=== PATIENT | male | born 1955 | race Caucasian/White ===

== ENCOUNTER 2017-11-25 00:19 | Emergency (ER) | payer MEDICARE, OTHER ==
[~2017-11-25] VITALS: Ht 180.3 cm; Wt 95.0 kg
[~2017-11-25 00:19] MED LIST: BACT800T5 PO
[2017-11-25 00:23] VITALS: BP 129/63; PULSE 83; RESP 18; TEMP 97.3; O2SAT 94
[2017-11-25] MEDS ORDERED: MORPHINE SULFATE 4 MG/ML INJ IV PUSH ONE (00:30)
[2017-11-25] MEDS ORDERED: SODIUM CHLORIDE 0.9% FLUSH 10 ML FLUSH IV FLUSH PRN (00:30)
--- NOTE | 2017-11-25 00:32 | PD ---
HPI Chief Complaint: Fall Time Seen by Provider: 00:25 Travel History International Travel<30 days: No Contact w/Intl Traveler<30days: No Traveled to known affect area: No History of Present Illness HPI 62-year-old male brought in by ambulance from his [facility] for evaluation of back pain after mechanical fall. Patient states that he was walking to the bathroom when he slipped and fell. He landed onto his right knee and right shoulder. He is unsure if he struck his head. He is not on any blood thinners. He now complains of right knee pain and right shoulder pain which is moderate, constant, worse with movements. He also complains of severe mid and lower back pain which is constant and worse with movements. No chest pain or dyspnea. No pain in any other joint or extremity. He has chronic back pain and receives cortisone injections for this. PFSH Past Medical History Anxiety: Yes Depression: Yes Cardiovascular Problems: Yes (htn, seizures) Diminished Hearing: No Hypertension: Yes Kidney Stones: Yes (STENT PLACEMENT) Pancreatitis: Yes Seizures: Yes (2005) Influenza Vaccination: Yes Past Surgical History Abdominal Surgery: Yes (HERNIA IN 1978) Eye Surgery: Yes (ORBITAL REPAIR (RIGHT) 1981) Other Surgery: Yes (HERNIA 1978) Social History Alcohol Use: No Tobacco Use: Yes (1 pack per day ) Substance Use: Yes (DRINKS BEER OR VODKA.) Allergies-Medications (Allergen,Severity, Reaction): Coded Allergies: No Known Allergies (Verified Adverse Reaction, Unknown, 11/25/17) Reported Meds & Prescriptions Reported Meds & Active Scripts Active Reported Olanzapine 5 Mg Tab 5 Mg PO DAILY Metoprolol Succinate ER 24 HR (Metoprolol Succinate) 50 Mg Tab 50 Mg PO DAILY Meloxicam 15 Mg Tab 15 Mg PO DAILY Magnesium Oxide 400 Mg Tab 400 Mg PO DAILY Alprazolam 1 Mg Tab 1 Mg PO Q6H PRN Refresh Opth Drops (Polyvinyl Alcohol-Povidone Opth Drops) 1.4-0.6% Drops 1-2 Drop EACH EYE PRN PRN Zolpidem (Zolpidem Tartrate) 10 Mg Tab 10 Mg PO HS PRN Sertraline (Sertraline HCl) 100 Mg Tab 100 Mg PO DAILY Omeprazole 40 Mg Cap 40 Mg DAILY Imodium A-D (Loperamide HCl) 2 Mg Capsule 2 Mg PO DIRECTED PRN One capsule after each loose stool. Not to exceed 8 tablets per day. Ala-Javi Topical (Hydrocortisone (Topical)) 2.5% Cream 1 Applic TOPICAL DIRECTED Elimite Topical (Permethrin) 5% Cream 1 Applic TOPICAL ONCE Hemorrhoidal Ointment (Phenyleph/Shark Jolene.oil/Mo/Pet) 57 Gm Oint...g. Itch Relief (Clotrimazole) 1 % Cream..g. Colace (Docusate Sodium) 100 Mg Capsule 100 Mg PO BID Review of Systems Except as stated in HPI: all other systems reviewed are Neg Physical Exam Narrative GENERAL: Well-developed, well-nourished, awake, alert, no apparent distress. SKIN: Focused skin assessment warm/dry. HEAD: Atraumatic. Normocephalic. EYES: Pupils equal and round. No scleral icterus. No injection or drainage. ENT: Mucous membranes pink and moist. NECK: Trachea midline. No JVD. CARDIOVASCULAR: Regular rate and rhythm. No murmur appreciated. RESPIRATORY: No accessory muscle use. Clear to auscultation. Breath sounds equal bilaterally. GASTROINTESTINAL: Abdomen soft, non-tender, nondistended. Hepatic and splenic margins not palpable. MUSCULOSKELETAL: Moderate midline thoracic spine and lumbar spine tenderness without step-off. Moderate tenderness to right knee and right shoulder without obvious deformity, with normal range of motion. The rest of his joints and extremities are without deformity, without tenderness, with normal range of motion. NEUROLOGICAL: Awake and alert. No obvious cranial nerve deficits. Motor grossly within normal limits. Normal speech. PSYCHIATRIC: Appropriate mood and affect; insight and judgment normal. Data Data Last Documented VS Vital Signs Date Time Temp Pulse Resp B/P (MAP) Pulse Ox O2 Delivery O2 Flow Rate FiO2 11/25/17 01:41 78 16 135/75 (95) 95 Room Air 11/25/17 00:23 97.3 Orders Orders Complete Blood Count With Diff (11/25/17:) Comprehensive Metabolic Panel (11/25/17:) Prothrombin Time / Inr (Pt) (11/25/17:28) Act Partial Throm Time (Ptt) (11/25/17:28) Iv Access Insert/Monitor (11/25/17:) Ecg Monitoring (11/25/17:) Oximetry (11/25/17:28) Sodium Chloride 0.9% Flush (Ns Flush) (11/25/17 00:30) Ct Brain W/O Iv Contrast(Rout) (11/25/17 ) Ct Cerv Spine W/O Contrast (11/25/17 ) Ct Lumb Spine W/O Contrast (11/25/17 ) Ct Thor Spine W/O Contrast (11/25/17 ) Knee, Complete (4vws) (11/25/17 ) Shoulder, Complete (>2vws) (11/25/17 ) Pelvis, Ap Only (Routine) (11/25/17 ) Morphine Inj (Morphine Inj) (11/25/17 00:30) Ed Discharge Order (11/25/17 02:16) Labs Laboratory Tests Test 11/25/17 01:20 White Blood Count 11.4 TH/MM3 Red Blood Count 4.65 MIL/MM3 Hemoglobin 14.5 GM/DL Hematocrit 41.9 % Mean Corpuscular Volume 90.1 FL Mean Corpuscular Hemoglobin 31.2 PG Mean Corpuscular Hemoglobin Concent 34.7 % Red Cell Distribution Width 14.0 % Platelet Count 199 TH/MM3 Mean Platelet Volume 9.0 FL Neutrophils (%) (Auto) 48.1 % Lymphocytes (%) (Auto) 28.1 % Monocytes (%) (Auto) 13.4 % Eosinophils (%) (Auto) 9.2 % Basophils (%) (Auto) 1.2 % Neutrophils # (Auto) 5.5 TH/MM3 Lymphocytes # (Auto) 3.2 TH/MM3 Monocytes # (Auto) 1.5 TH/MM3 Eosinophils # (Auto) 1.1 TH/MM3 Basophils # (Auto) 0.1 TH/MM3 CBC Comment DIFF FINAL Differential Comment Prothrombin Time 9.4 SEC Prothromb Time International Ratio 0.9 RATIO Activated Partial Thromboplast Time 24.9 SEC Blood Urea Nitrogen 18 MG/DL Creatinine 0.86 MG/DL Random Glucose 111 MG/DL Total Protein 7.3 GM/DL Albumin 3.5 GM/DL Calcium Level 8.7 MG/DL Alkaline Phosphatase 86 U/L Aspartate Amino Transf (AST/SGOT) 19 U/L Alanine Aminotransferase (ALT/SGPT) 24 U/L Total Bilirubin 0.2 MG/DL Sodium Level 140 MEQ/L Potassium Level 4.1 MEQ/L Chloride Level 102 MEQ/L Carbon Dioxide Level 28.0 MEQ/L Anion Gap 10 MEQ/L Estimat Glomerular Filtration Rate 90 ML/MIN MDM Medical Decision Making Medical Screen Exam Complete: Yes Emergency Medical Condition: Yes Differential Diagnosis Vertebral injury, musculoskeletal injury, intracranial trauma Narrative Course Vital signs reviewed. CBC is essentially unremarkable. CMP is unremarkable. CT head: Chronic small vessel ischemic and atrophic changes. CT cervical spine: Degenerative spondylolysis without any significant compromise to the existing nerve roots or the thecal sac. CT thoracic spine: Slight to moderate degenerative changes without any significant compromise to the existing nerve roots or the thecal sac. CT lumbar spine: Chronic degenerative changes without any significant compromise to the existing nerve roots or the thecal sac. Right shoulder x-ray: Chronic changes and no definite fracture for technique. Right knee x-ray: Chronic changes and no definite fracture for technique. Pelvis x-ray: Unremarkable study. The patient was given IV morphine and on reassessment he is resting comfortably. He is stable for discharge back to his [facility] with PMD follow-up this week. Diagnosis Primary Impression: Fall Qualified Codes: W19.XXXA - Unspecified fall, initial encounter Additional Impression: Acute exacerbation of chronic low back pain Referrals: Primary Care Physician 3 days Additional Instructions: Follow-up with your primary care physician this week. Return to the emergency department for worsening symptoms or any other concerns. Disposition: 01 DISCHARGE HOME Condition: Stable Fede Gillis MD November 25, 2017 00:32
[2017-11-25] MEDS ORDERED: ZOLP10TA3 PO (00:35)
[2017-11-25] MEDS ORDERED: ALPR1TAB3 PO (00:35)
[2017-11-25] MEDS ORDERED: HYDR-4204 TOPICAL (00:35)
[2017-11-25] MEDS ORDERED: COLA100C5 PO (00:35)
[2017-11-25] MEDS ORDERED: CLOT15CR5 (00:35)
[2017-11-25] MEDS ORDERED: [UNRECOGNIZED DRUG - CODE] (00:35)
[2017-11-25] MEDS ORDERED: SERT-129 PO (00:35)
[2017-11-25] MEDS ORDERED: LOPE-1 PO (00:35)
[2017-11-25] MEDS ORDERED: REFRDRO EACH EYE (00:35)
[2017-11-25] MEDS ORDERED: FLUC100T2 PO (00:35)
[2017-11-25] MEDS ORDERED: PERM5CRE11 TOPICAL (00:35)
[2017-11-25] MEDS ORDERED: OMEP40CA2 (00:35)
[2017-11-25] MEDS ORDERED: METO1TAB9 PO (00:37)
[2017-11-25] MEDS ORDERED: OLAN5TAB PO (00:37)
[2017-11-25] MEDS ORDERED: MAGN400T2 PO (00:37)
[2017-11-25] MEDS ORDERED: MELO15TA20 PO (00:37)
--- NOTE | 2017-11-25 01:07 | RADRPT ---
EXAM DATE: 11/25/2017 1:03 AM EDT AGE/SEX: 62 years / Male INDICATIONS: Pelvic pain post fall. CLINICAL DATA: This is the patient's initial encounter. Patient reports that signs and symptoms have been present for 1 day and indicates a pain score of 9/10. MEDICAL/SURGICAL HISTORY: None. None. COMPARISON: No prior exams available for comparison. FINDINGS: No definite fractures, or dislocations are identified. No definite lytic or sclerotic les ion is seen. The joint spaces are well maintained. CONCLUSION: Unremarkable study. Electronically signed by: Santa Logan MD 11/25/2017 1:05 AM EDT
--- NOTE | 2017-11-25 01:08 | RADRPT ---
EXAM DATE: 11/25/2017 1:05 AM EDT AGE/SEX: 62 years / Male INDICATIONS: Right shoulder pain post fall. CLINICAL DATA: This is the patient's initial encounter. Patient reports that signs and symptoms have been present for 1 day and indicates a pain score of 5/10. MEDICAL/SURGICAL HISTORY: None. None. COMPARISON: No prior exams available for comparison. FINDINGS: There is old fracture of right distal clavicle with angulation and hypertrophic changes. There is als o hypertrophic change involving the AC joint and chronic degenerative change of the glenohumeral join t. Acute fracture is not seen. CONCLUSION: Chronic changes and no definite fracture for technique. Electronically signed by: Santa Logan MD 11/25/2017 1:07 AM EDT
--- NOTE | 2017-11-25 01:19 | RADRPT ---
EXAM DATE: 11/25/2017 1:14 AM EDT AGE/SEX: 62 years / Male INDICATIONS: Right knee pain post fall. CLINICAL DATA: This is the patient's initial encounter. Patient reports that signs and symptoms have been present for 1 day and indicates a pain score of 5/10. MEDICAL/SURGICAL HISTORY: None. None. COMPARISON: No prior exams available for comparison. FINDINGS: Old healed fractures of the proximal fibula is identified with intramedullary lisandro traversing the tibi a and proximal fixation screws. There is diffuse osteopenia no acute fracture. Mild osteoarthritis is seen within the patellofemoral joint. Vascular calcifications are seen. CONCLUSION: Chronic changes and no definite fracture for technique. Electronically signed by: Santa Logan MD 11/25/2017 1:17 AM EDT
--- NOTE | 2017-11-25 01:33 | RADRPT ---
EXAM DATE: 11/25/2017 1:30 AM EDT AGE/SEX: 62 years / Male INDICATIONS: Trauma, fall. Patient denies hitting head. CLINICAL DATA: This is the patient's initial encounter. Patient reports that signs and symptoms have been present for 1 day and indicates a pain score of 0/10. MEDICAL/SURGICAL HISTORY: Hypertension. Pancreatitis. Seizures. None. RADIATION DOSE: 50.86 CTDI (mGy) ;Tabletop exam COMPARISON: No prior exams available for comparison. TECHNIQUE: CT of the head without contrast. Using automated exposure control and adjustment of the mA and/or kV according to patient size, radiation dose was kept as low as reasonably achievable to ob tain optimal diagnostic quality images. FINDINGS: There is no evidence for intracranial hemorrhage, mass effect, mass lesions, or edema. The visualize d bony structures appear intact. Moderate degree of brain atrophy is seen. Moderate periventricular white matter changes are seen nonspecific mostly consistent with chronic small vessel ischemic change s. There are no signs of acute infarction for technique. There is encephalomalacia in the right fron parminder lobe. There is mild mucoperiosteal thickening within multiple sinuses. CONCLUSION: Chronic small vessel ischemic and atrophic changes. Electronically signed by: Santa Logan MD 11/25/2017 1:32 AM EDT
--- NOTE | 2017-11-25 01:36 | RADRPT ---
EXAM DATE: 11/25/2017 1:32 AM EDT AGE/SEX: 62 years / Male INDICATIONS: Trauma, fall. Patient denies neck pain. CLINICAL DATA: This is the patient's initial encounter. Patient reports that signs and symptoms have been present for 1 day and indicates a pain score of 0/10. MEDICAL/SURGICAL HISTORY: Hypertension. Pancreatitis. Seizures. None. RADIATION DOSE: 19.89 CTDI (mGy) COMPARISON: No prior exams available for comparison. TECHNIQUE: Contiguous axial images were obtained using helical multirow detector technique. The vol umetric data was post-processed with multiplanar reconstruction in oblique axial, sagittal, and coron al planes. Using automated exposure control and adjustment of the mA and/or kV according to patient s ize, radiation dose was kept as low as reasonably achievable to obtain optimal diagnostic quality laura ges. FINDINGS: No significant subluxation or soft tissue swelling is seen. Degenerative spondylosis is present at C 4-5 C5-6 and C6-7 to a slight degree. No definite fractures seen. C2-C3: No appreciable compromise to the thecal sac, exiting nerve roots are seen. The neural foramin a are patent bilaterally. No appreciable thecal sac stenosis is seen. C3-C4: No appreciable compromise to the thecal sac, exiting nerve roots are seen. The neural foramin a are patent bilaterally. No appreciable thecal sac stenosis is seen. C4-C5: No appreciable compromise to the thecal sac, exiting nerve roots are seen. The neural foramin a are patent bilaterally. No appreciable thecal sac stenosis is seen. C5-C6: No appreciable compromise to the thecal sac, exiting nerve roots are seen. The neural foramin a are patent bilaterally. No appreciable thecal sac stenosis is seen. C6-C7: No appreciable compromise to the thecal sac, exiting nerve roots are seen. The neural foramin a are patent bilaterally. No appreciable thecal sac stenosis is seen. C7-T1: No appreciable compromise to the thecal sac, exiting nerve roots are seen. The neural foramin a are patent bilaterally. No appreciable thecal sac stenosis is seen. CONCLUSION: Degenerative spondylosis without any significant compromise to the exiting nerve roots o r the thecal sac. Electronically signed by: Santa Logan MD 11/25/2017 1:35 AM EDT
[2017-11-25 01:40] VITALS: O2SAT 95
[2017-11-25 01:41] VITALS: BP 135/75; PULSE 78; RESP 16; O2SAT 95
--- NOTE | 2017-11-25 01:44 | RADRPT ---
EXAM DATE: 11/25/2017 1:36 AM EDT AGE/SEX: 62 years / Male INDICATIONS: Trauma, fall. Back pain. CLINICAL DATA: This is the patient's initial encounter. Patient reports that signs and symptoms have been present for 1 day and indicates a pain score of 10/10. MEDICAL/SURGICAL HISTORY: Hypertension. Pancreatitis. Renal calculi. Seizures. None. RADIATION DOSE: 33.31 CTDI (mGy) COMPARISON: No prior exams available for comparison. TECHNIQUE: Contiguous axial images were acquired using a multirow detector CT scanner without contra st. Multiplanar reconstruction in the sagittal and coronal planes was performed. Using automated exp osure control and adjustment of the mA and/or kV according to patient size, radiation dose was kept a s low as reasonably achievable to obtain optimal diagnostic quality images. FINDINGS: No significant compression deformities are seen. Slight to moderate degenerative changes are present in the disc space and facets. T1-T2: No appreciable compromise to the thecal sac, spinal cord, or the exiting nerve roots are seen . The neural foramina are grossly patent bilaterally. T2-T3: No appreciable compromise to the thecal sac, spinal cord, or the exiting nerve roots are seen . The neural foramina are grossly patent bilaterally. T3-T4: No appreciable compromise to the thecal sac, spinal cord, or the exiting nerve roots are seen . The neural foramina are grossly patent bilaterally. T4-T5: No appreciable compromise to the thecal sac, spinal cord, or the exiting nerve roots are seen . The neural foramina are grossly patent bilaterally. T5-T6: No appreciable compromise to the thecal sac, spinal cord, or the exiting nerve roots are seen . The neural foramina are grossly patent bilaterally. T6-T7: No appreciable compromise to the thecal sac, spinal cord, or the exiting nerve roots are seen . The neural foramina are grossly patent bilaterally. T7-T8: No appreciable compromise to the thecal sac, spinal cord, or the exiting nerve roots are seen . The neural foramina are grossly patent bilaterally. T8-T9: No appreciable compromise to the thecal sac, spinal cord, or the exiting nerve roots are seen . The neural foramina are grossly patent bilaterally. T9-T10: No appreciable compromise to the thecal sac, spinal cord, or the exiting nerve roots are see n. The neural foramina are grossly patent bilaterally. T10-T11: No appreciable compromise to the thecal sac, spinal cord, or the exiting nerve roots are se en. The neural foramina are grossly patent bilaterally. T11-T12: No appreciable compromise to the thecal sac, spinal cord, or the exiting nerve roots are se en. The neural foramina are grossly patent bilaterally. T12-L1: No appreciable compromise to the thecal sac, spinal cord, or the exiting nerve roots are see n. The neural foramina are grossly patent bilaterally. CONCLUSION: Slight to moderate degenerative changes without any significant compromise to the exitin g nerve roots or the thecal sac. Electronically signed by: Santa Logan MD 11/25/2017 1:42 AM EDT
--- NOTE | 2017-11-25 01:48 | RADRPT ---
EXAM DATE: 11/25/2017 1:37 AM EDT AGE/SEX: 62 years / Male INDICATIONS: Trauma, fall. Lower back pain. CLINICAL DATA: This is the patient's initial encounter. Patient reports that signs and symptoms have been present for 1 day and indicates a pain score of 10/10. MEDICAL/SURGICAL HISTORY: Hypertension. Pancreatitis. Renal calculi. Seizures. None. RADIATION DOSE: 35.86 CTDI (mGy) COMPARISON: No prior exams available for comparison. TECHNIQUE: Contiguous axial images were acquired with a multirow detector CT scanner without contras t. Multiplanar reconstructions in the sagittal and coronal plane were also performed. Using automate d exposure control and adjustment of the mA and/or kV according to patient size, radiation dose was k ept as low as reasonably achievable to obtain optimal diagnostic quality images. FINDINGS: No significant compression deformities, spondylolysis, or spondylolesthesis is seen. L1-L2: No appreciable compromise to the thecal sac, or the exiting nerve roots is seen. The neural foramina and lateral recesses are patent bilaterally. L2-L3: No appreciable compromise to the thecal sac, or the exiting nerve roots is seen. The neural foramina and lateral recesses are patent bilaterally. L3-L4: Moderate degenerative changes are present in the disc space and facets. No appreciable thecal sac stenosis is seen. Slight bulging disc is present without any significant compromise to the exiti ng nerve roots or the thecal sac. L4-L5: Moderate degenerative changes are present in the disc space and facets. Chronic degenerativ e changes and bulging disc indent the thecal sac without any significant compromise to the exiting ne rve roots or the thecal sac. Moderate facet arthrosis is seen bilaterally. L5-S1: No appreciable compromise to the thecal sac, or the exiting nerve roots is seen. The neural foramina and lateral recesses are patent bilaterally. Moderate facet arthrosis is seen bilaterally. CONCLUSION: Chronic degenerative changes without any significant compromise to the exiting nerve delio ts or the thecal sac. Electronically signed by: Santa Logan MD 11/25/2017 1:47 AM EDT
[2017-11-25 01:51] LABS: AUTOMATED NEUTROPHIL # 5.5 TH/MM3 (1.8-7.7); BASOPHIL # 0.1 TH/MM3 (0-0.2); BASOPHIL % 1.2 % (0.0-2.0); EOSINOPHIL # 1.1 TH/MM3 (0-0.4); EOSINOPHIL % 9.2 % (0.0-4.0); HEMATOCRIT 41.9 % (39.0-51.0); HEMOGLOBIN 14.5 GM/DL (13.0-17.0); LYMPH % 28.1 % (9.0-44.0); LYMPHOCYTE # 3.2 TH/MM3 (1.0-4.8); MEAN CELL VOLUME 90.1 FL (80.0-100.0); MEAN CORPUSCULAR HEMOGLOBIN 31.2 PG (27.0-34.0); MEAN CORPUSCULAR HGB CONC 34.7 % (32.0-36.0); MONO % 13.4 % (0.0-8.0); MONOCYTE # 1.5 TH/MM3 (0-0.9); NEUT % 48.1 % (16.0-70.0); PLATELET COUNT 199 TH/MM3 (150-450); RED BLOOD COUNT 4.65 MIL/MM3 (4.50-5.90); WHITE BLOOD COUNT 11.4 TH/MM3 (4.0-11.0)
[2017-11-25 02:05] LABS: INTERNATIONAL NORMALIZED RATIO 0.9 RATIO; PROTHROMBIN TIME - PATIENT 9.4 SEC (9.8-11.6)
[2017-11-25 02:13] LABS: ALBUMIN 3.5 GM/DL (3.4-5.0); ALT (GPT) 24 U/L (12-78); AST (GOT) 19 U/L (15-37); BLOOD UREA NITROGEN 18 MG/DL (7-18); CALCIUM 8.7 MG/DL (8.5-10.1); CHLORIDE 102 MEQ/L (98-107); CREATININE 0.86 MG/DL (0.60-1.30); GLOMERULAR FILTRATION RATE 90 ML/MIN (>89); GLUCOSE,RANDOM 111 MG/DL (74-106); SODIUM (NA) 140 MEQ/L (136-145)
[2017-11-25 02:15] LABS: ALKALINE PHOSPHATASE 86 U/L (45-117); TOTAL BILIRUBIN ADULT 0.2 MG/DL (0.2-1.0); TOTAL PROTEIN 7.3 GM/DL (6.4-8.2)
== END 2017-11-25 07:54 ==
LOC: NEPE 00:19
DX: M54.5 Low back pain (principal); G89.29 Other chronic pain; M25.511 Pain in right shoulder; M25.561 Pain in right knee; I10 Essential (primary) hypertension; F32.9 Major depressive disorder, single episode, unspecified; F17.200 Nicotine dependence, unspecified, uncomplicated; Z79.899 Other long term (current) drug therapy
CPT/HCPCS: 70450; 72125; 72128; 72131; 72170; 73030; 73564; 80053; 85025; 85610; 85730; 96374; 99285; J2270